=== PATIENT | male | born 1970 ===

== ENCOUNTER 2024-04-07 15:05 | Outpatient (CLI) | payer OTHER | END 2024-04-07 15:20 | disposition home or self-care (01) | LOC: RAD 15:05 → EDBD 15:05 → RAD 15:20 | DX: M99.03 Segmental and somatic dysfunction of lumbar region (principal); M99.04 Segmental and somatic dysfunction of sacral region; M99.05 Segmental and somatic dysfunction of pelvic region; M25.552 Pain in left hip ==